=== PATIENT | female | born 1995 | race Caucasian/White ===

== ENCOUNTER 2016-05-06 05:20 | Emergency (ER) | payer BC ==
[~2016-05-06 05:20] MED LIST: IBUPROFEN800 MG PO; NO MEDICATIONS; NORCO1 TAB 10/3 PO; TYLENOL #3 PO; VOLTAREN50 MG PO; ZOFRAN PO
[2016-05-06 05:45] LABS: INFLUENZA A NEG (NEG); INFLUENZA B NEG (NEG)
== END 2016-05-06 06:02 | disposition home or self-care (01) ==
LOC: SED 05:20
PROVIDERS: Emergency Medicine
DX: J11.1 Influenza due to unidentified influenza virus with other respiratory manifestations (principal); J45.909 Unspecified asthma, uncomplicated
CPT/HCPCS: 87651; 87804; 99283

== ENCOUNTER → 2016-05-26 | Outpatient (CLI) | payer BC ==
[~2016-05-26] MED LIST changes: +ZOLOFT
[2016-05-30 19:01] LABS: TISSUE TRANSGLUTAMINASE IGA AB 1 U/mL (<4); TISSUE TRANSGLUTAMINASE IGG 3 U/mL (<6)
== END | disposition home or self-care (01) ==
LOC: CLAB 10:36
PROVIDERS: Internal Medicine Gastroenterology
DX: R10.32 Left lower quadrant pain (principal); R10.31 Right lower quadrant pain; K92.1 Melena
CPT/HCPCS: 36415; 83516; 84443

== ENCOUNTER 2016-08-14 10:38 | Emergency (ER) | payer BC ==
--- NOTE | ~2016-08-14 | CR253 ---
[facility]. [facility] A Service of [facility] & [facility] RADIOLOGY TEXT RESULTS PATIENT: JAMEEL LARA LOCATION: SED : [birth year] UNIT #: [id number] AGE: [address]: Eun Wilkinson SEX: F ORDER DR: [id number] [address] [address] [id number] E MR#: [id number] Acc #: [id number] NAME: JAMEEL LARA : 1995 SEX: F STUDY DATE/TIME: 08/14/2016 10:59 UNIT: SED ROOM: STUDY DESCRIPTION: CR Tibia and Fibula 2 Views Rt Attending Physician: Eun Wilkinson Pa-C Ordering Physician: Eun Wilkisnon Pa-C Primary Care Physician: Kentrell John M.D. MEDICAL IMAGING REPORT This report is preliminary unless electronic signature is present. EXAM Right tibia-fibula 2 views INDICATIONS Laceration and pain since 08:00 a.m. today after cutting leg. This occurred on the right leg. COMPARISON STUDIES No comparisons. FINDINGS No radiopaque foreign body. No fracture or dislocation. IMPRESSION Negative. No radiopaque foreign body. Dictated by... Nathan Garg M.D. THIS IS AN ELECTRONICALLY VERIFIED REPORT Nathan Garg M.D. at 08/15/2016 7:32 AM VINAY/robert TD: 08/14/2016 16:21 JOB #: [id number] MEDICAL IMAGING REPORT Page 1 of 1
[~2016-08-14 10:38] MED LIST changes: -ZOLOFT
[2016-08-14] MEDS ORDERED: ZOLOFT (10:49)
== END 2016-08-14 12:15 | disposition home or self-care (01) ==
LOC: SED 10:38
DX: S81.811A Laceration without foreign body, right lower leg, initial encounter (principal); Z23 Encounter for immunization; X58.XXXA Exposure to other specified factors, initial encounter; Y92.89 Other specified places as the place of occurrence of the external cause
CPT/HCPCS: 12001; 73590; 90471; 90715; 99283